=== PATIENT | female | born 1970 | race Caucasian/White ===

== ENCOUNTER 2020-05-11 12:26 | Emergency (ER) | payer SELFPAY ==
[2020-05-11 12:38] VITALS: BMI 34.3
[2020-05-11 12:40] VITALS: BP 174/85; PULSE 61; RESP 18; TEMP 36.8; O2SAT 94
--- NOTE | 2020-05-11 12:45 | W.ED.EXTPRO ---
HPI - Extremity Problem General: Chief complaint: Extremity Injury, Lower Stated complaint: left foot pain/fall Time Seen by Provider: 05/11/20 12:28 History of Present Illness: MD Complaint: extremity pain, extremity swelling, joint swelling and joint pain Onset (ago): day(s) Pain Consistency: constant Location: left Quality: aching, dull and constant Radiation: none Relieving factors: nothing Exacerbating factors: range of motion, weight bearing and walking Associated symptoms: Reports no associated symptoms Review of Systems General: Reports: 10 or more systems reviewed and unremarkable except in HPI and below PFSH ED PFSH: Social History Smoking and tobacco status: current every day smoker Physical Exam Narrative: EXAM NARRATIVE: Very minimal swelling to the left foot and ankle. There is no discoloration. There are no grossly apparent deformities. Skin is normal color and there is no evidence of subcutaneous hematoma. Course Vital Signs: Vital signs: Vital Signs Temperature 98.3 F 05/11/20 12:40 Pulse Rate 61 05/11/20 12:40 Respiratory Rate 18 05/11/20 12:40 Blood Pressure 174/85 05/11/20 12:40 Pulse Oximetry 94 05/11/20 12:40 MDM - Extremity (Nontraumatic) Imaging Data^: Xray Ortho: My impression: No acute bony abnormality Discharge Plan Discharge Patient Disposition: Home, Self-Care Clinical Impression: Ankle sprain and strain Sprain of foot Qualifiers: Encounter type: initial encounter Laterality: left Qualified Code(s): S93.602A - Unspecified sprain of left foot, initial encounter Condition: Stable Prescriptions: New Tylenol-Codeine #3 300-30 mg tablet 1 tab PO Q4H PRN (Reason: pain) Qty: 10 RF: 0 No Action venlafaxine [Effexor XR] 75 mg Capsule,Extended Release 24hr 75 mg PO DAILY RF: 0 lorazepam 1 mg Tablet 1 mg PO BEDTIME PRN (Reason: Anxiety) RF: 0 Delestrogen 10 mg/mL Oil 2 mg IM Q30D RF: 0 phentermine 37.5 mg Capsule 37.5 mg PO DAILY RF: 0 Zyrtec 10 mg Tablet 10 mg PO DAILY PRN (Reason: Allergy Symptoms) RF: 0 Tylenol Extra Strength 500 mg Tablet 1,000 mg PO PRN RF: 0 Symbicort 160-4.5 mcg/actuation Hfa Aerosol Inhaler 2 puff INHALATION BID RF: 0 Discharge Orders: Discharge Order (Routine); Ordered 05/11/20 Ordered By: Shamar Powell Coding Level of Care Code ED [employer] for Garo Zavala
--- NOTE | 2020-05-11 12:51 | XRR_ITS ---
PROCEDURE INFORMATION: Exam: XR Left Ankle Exam date and time: 05/11/2020 12:52 PM Age: 49 years old Clinical indication: Injury or trauma; Fall; Initial encounter; Blunt trauma; Ankle; Left; Additional info: Fall and injury TECHNIQUE: Imaging protocol: XR Left ankle. Views: 3 or more views. COMPARISON: No relevant prior studies available. FINDINGS: Bones/joints: There are small marginal osteophytes across the tibiotalar joint consistent with early osteoarthritic change. There is a nondisplaced fracture through the base of the 5th metatarsal. Soft tissues: Edema and/or hematoma is present in the soft tissues adjacent to the fracture site. XR/XR ankle LT min 3V* [id number] IMPRESSION: There is a nondisplaced fracture through the base of the 5th metatarsal adjacent soft tissue changes.
--- NOTE | 2020-05-11 12:52 | XRR_ITS ---
PROCEDURE INFORMATION: Exam: XR Left Foot Complete Exam date and time: 05/11/2020 12:53 PM Age: 49 years old Clinical indication: Injury or trauma; Fall; Initial encounter; Blunt trauma; Foot; Left; Additional info: Fall and injury TECHNIQUE: Imaging protocol: XR Left foot. Views: 3 or more views. COMPARISON: No relevant prior studies available. FINDINGS: Bones/joints: There is an enthesophyte off the os calcis at the distal Achilles insertion. Soft tissues: Normal. XR/XR foot LT min 3V* [id number] IMPRESSION: No acute findings.
--- NOTE | 2020-05-11 13:33 | PC.NURSE ---
Bryant wrap applied to left ankle. Crutches provided. Patient able to use without difficultly.
[2020-05-11 14:37] VITALS: RESP 16
[2020-05-11] MEDS: morphine 4 mg/mL SDV 1 mL IM (14:37)
--- NOTE | 2020-05-11 14:40 | PC.NURSE ---
PT CALLED ASKED TO RETURN DO TO FX NOTED LEFT FOOT PER DR DE LA O. PT RETURNED FOR SPLINT APPLICATION. ORDER RECEIVED FOR IM MORPHINE AND TO PLACE AN POSTERIOR OCL SPLINT
[2020-05-11 15:10] VITALS: BP 172/74; PULSE 61; RESP 16; O2SAT 97
--- NOTE | 2020-05-11 15:15 | PC.NURSE ---
PT DISCHARGED AT 1510 WITH INSTRUCTION VERBAL SPLINT CARE GIVEN VERBALIZED UNDERSTANDING OUT PER W/C WITH FRIEND
== END 2020-05-11 13:34 | disposition home or self-care (01) ==
PROVIDERS: Emergency Provider Family Medicine
DX: S93.602A Unspecified sprain of left foot, initial encounter (principal); S96.912A Strain of unspecified muscle and tendon at ankle and foot level, left foot, initial encounter; W19.XXXA Unspecified fall, initial encounter; F17.210 Nicotine dependence, cigarettes, uncomplicated
CPT/HCPCS: 12345; 29515; 73610; 73630; 96372; 99283; E0114; J2270